=== PATIENT | male | born 1975 | race Caucasian/White ===

== ENCOUNTER 2016-08-27 15:06 | Emergency (ER) | payer OTHER ==
[~2016-08-27] VITALS: Ht 177.8 cm; Wt 77.1 kg
[2016-08-27 15:50] VITALS: BP 146/82
[2016-08-27] MEDS ORDERED: ETOMIDATE (2MG/ML) 20ML VIAL IV ONE (16:00)
[2016-08-27] MEDS: KETOROLAC TROMETH 30 MG/ML 1ML VIAL IV ONE ×2 (16:51→17:12)
== END 2016-08-27 17:18 | disposition home or self-care (01) ==
LOC: ER 15:06 → EDBD 15:06 → ER 17:18
DX: M21.822 Other specified acquired deformities of left upper arm (principal); S43.085A Other dislocation of left shoulder joint, initial encounter; W17.89XA Other fall from one level to another, initial encounter; Y93.23 Activity, snow (alpine) (downhill) skiing, snowboarding, sledding, tobogganing and snow tubing; Y99.8 Other external cause status; Y92.828 Other wilderness area as the place of occurrence of the external cause
CPT/HCPCS: 23650; 73030; 96374; 99285; J1885; J7030